=== PATIENT | male | born 1995 | race Hispanic/Latino ===

== ENCOUNTER 2023-11-11 11:59 | Emergency (ER) | payer MEDICAID, OTHER ==
[~2023-11-11] VITALS: Ht 175.3 cm; Wt 83.9 kg
[2023-11-11 13:16] VITALS: BP 131/73; PULSE 75; RESP 16
== END 2023-11-11 16:39 | disposition home or self-care (01) ==
LOC: EDH 11:59
DX: S16.1XXA Strain of muscle, fascia and tendon at neck level, initial encounter (principal); S29.012A Strain of muscle and tendon of back wall of thorax, initial encounter; S39.012A Strain of muscle, fascia and tendon of lower back, initial encounter; V89.2XXA Person injured in unspecified motor-vehicle accident, traffic, initial encounter; Y93.I9 Activity, other involving external motion; Y92.488 Other paved roadways as the place of occurrence of the external cause; Y99.8 Other external cause status
CPT/HCPCS: 70450; 71045; 72100; 72125; 74176

== ENCOUNTER 2025-05-01 12:48 | Emergency (ER) | payer SELFPAY ==
[~2025-05-01] VITALS: Ht 172.7 cm; Wt 83.9 kg
--- NOTE | 2025-05-01 14:20 | HMCIMG ---
EXAM: CR Soft Tissue Neck, 1 View. CLINICAL HISTORY: swelling right side COMPARISON: None provided. FINDINGS: SOFT TISSUES: Unremarkable. No retropharyngeal soft tissue swelling or gas. EPIGLOTTIS: No epiglottic thickening. BONES: No acute osseous abnormality. IMPRESSION: Soft tissue plain films of the neck are within normal limits. If clinical concern persist recommend contrast-enhanced CT imaging of the neck for further evaluation. /[place]
[2025-05-01] MEDS ORDERED: NAPR-1196 PO (14:30)
[2025-05-01] MEDS ORDERED: AZIT250T9 PO (14:30)
--- NOTE | 2025-05-01 14:31 | ERN ---
ED Note History of Present Illness Stated Complaint: NECK SWELLING Chief Complaint: Other Problems Time Seen by MD: 13:13 Dictation: 29-year-old male presenting to the emergency department with right-sided neck pain and swelling over the past few days tender to touch, patient reports pain with swallowing and movement. 4/10 dull pain. Allergies: Coded Allergies: No Known Drug Allergies (Unverified Allergy, Unknown, 11/11/23) Past Medical History Past Medical History: No Pertinent History Surgical History: None Family History: Negative Social History: Negative, Lives with family Review of System Dictation Constitutional: Negative for fever,chills, and weight loss Eyes: Negative for injury, pain,redness, and discharge ENT: Per HPI Cardiovascular: Negative for chest pain, palpitations, and edema Respiratory: Negative for shortness of breath, cough, and wheezing, Abdomen/GI: Negative for abdominal pain, nausea, vomiting, diarrhea, and constipation Back: Negative for injury and pain : Negative for injury, bleeding and discharge MS/Extremity: Negative for injury and deformity Skin: Negative for rash, and discoloration Neuro: Negative for headache, weakness, numbness, tingling, and seizure Initial Vital Sign VS Vital Signs Date Time Temp Pulse Resp B/P (MAP) Pulse Ox O2 Delivery O2 Flow Rate FiO2 05/01/25 12:57 98.6 81 18 133/93 98 Physical Exam Dictation General: awake, alert, NAD Head/Face: Normocephalic, atraumatic Eyes: PERRL, EOMI, vision at baseline ENT: oral cavity clear, TMs clear, no signs of infection, mild lymphadenitis/mild tenderness to the right side of the neck superficially, no crepitus Neck: Trachea midline, supple, no nuchal rigidity Cardiovascular: RRR, normal S1/S2, No MRGs, no JVD Respiratory: CTAB, no respiratory distress, No rales or wheezes Abdomen: Soft, non-tender, non-distended, normal bowel sounds, no guarding or rebound. Skin: Warm, dry, normal turgor, no rash MS/Extremity: Pulses equal, no cyanosis, neurovascular intact, FROM Neuro: COAx4, GCS 15, strength 5/5, CN 2-12 intact, normal cerebellar exam, normal gait, Psych: Normal behavior, mood, and affect normal Results (Laboratory/Radiology) X-RAY Comment: X-ray shows no acute process the space and neck appears normal ED Course ED Course Orders Procedure Category Date Status Time Neck Soft Tissue RAD 05/01/25 Resulted 13:35 Ceftriaxone 1g Vial PHA 05/01/25 Complete (Rocephine 1g Inj) 14:00 Ketorolac 60mg/2ml PHA 05/01/25 Complete (Toradol 60mg/2ml) 14:00 Current Medications Medications (Trade) Dose Ordered Sig/Lion Route PRN Reason Start Time Stop Time Status Last Admin Dose Admin Ceftriaxone Sodium (ROCEphine 1G INJ) 1 gm ONCE ONCE IM 05/01/25 14:00 05/01/25 14:01 DC 05/01/25 14:11 Ketorolac Tromethamine (toRADol 60MG/ 2ML) 15 mg ONCE ONCE IM 05/01/25 14:00 05/01/25 14:01 DC 05/01/25 14:12 Vital Signs Date Time Temp Pulse Resp B/P (MAP) Pulse Ox O2 Delivery O2 Flow Rate FiO2 05/01/25 12:57 98.6 81 18 133/93 98 Medical Decision Making MDM MDM: Differential diagnosis: Rationale: Tests considered and ordered secondary to shared decision making include: Previous outside records reviewed: Old ER visits. Risk of complication and/or morbidity or mortality of patient management: None Medications-Per medication reconciliation Need for hospitalization: Patient does not meet criteria for hospitalization. Need for emergency major/minor surgery: No There are no social concerns with this patient. Prescription drug management Prescriptions will include symptomatic care Patient's prior external medical records from other ER visits were reviewed by me as indicated. Prior testing and results from previous visits were reviewed. Prior tests were taken into account with medical decision making and resource utilization, independent historian/historians were used to obtain complete medical history. I independently interpreted the test that were performed, results were reviewed by me and considered findings on radiology if ordered. Medical management and examination interpretation discussions were had by me with other qualified healthcare professionals as indicated for the patient's care. 29-year-old male mild superficial lymphadenitis stable exam x-ray stable prescription given and advised to follow up with primary care doctor if symptoms have not resolved with in the next five days for further evaluation. We will return if worse. DX & DISP Disposition: Discharge Departure Impression: Primary Impression: Cervical lymphadenitis Condition: Stable Scripts Naproxen (Naproxen) 250 Mg Tablet 1 TAB PO BID for pain for 10 Days, #20 TAB 0 Refills Prov: ISAIAS AGGARWAL MD 05/01/25 Azithromycin (Azithromycin) 250 Mg Tablet 1 TAB PO AD for 5 Days, #6 TAB 0 Refills 2 the first day followed by 1 for days 2-5 Prov: ISAIAS AGGARWAL MD 05/01/25 Referrals: SELF,REFERRAL (PCP) ISAIAS AGGARWAL MD May 01, 2025 14:31
[2025-05-01 15:01] VITALS: BP 121/88; PULSE 80; RESP 18; TEMP 98.6; O2SAT 98
== END 2025-05-01 15:07 | disposition home or self-care (01) ==
LOC: EDH 12:48
DX: I88.9 Nonspecific lymphadenitis, unspecified (principal)
CPT/HCPCS: 99284; 70360; 96372 ×2; J1885; J0696